=== PATIENT | male | born 1950 | race Caucasian/White ===

== ENCOUNTER 2018-01-22 12:40 | Observation (INO) | payer MEDICARE, OTHER ==
[~2018-01-22] VITALS: Ht 193 cm; Wt 87.8 kg
[~2018-01-22 12:40] MED LIST: AMOCLA500 PO; Abilify2 MG; Amoxicillin500 MG PO; BUPR150ER PO; Budeprion Xl300 MG; CEPASTAT MT; CLOM50A; CLOM50A PO; CLON.5 PO; CYCL10 PO; Coumadin5 MG PO; FEXO60; FLUT110OIA INH; Fluvoxamine Ma100 MG PO; HYDACE5 PO; IBUHYD PO; IBUP800 PO; LEVO750 PO; LORA1 PO; Lovenox100 MG/1 M SQ; MAGIC MOUTHWASH PO; MELATONIN10 M2 PO; MELO7.5 PO; METPHE10 PO; MULVITMINF; Mobic15 MG PO; Norco 10-325 T1 EACH PO; Percocet 5-3251 EACH PO; ST JOHNS WORT; VERA120 PO; VERA180ER PO; VERA180ERA; VERA240ERB; VERA80 PO
[2018-01-22 13:18] LABS: BASOPHILS ABSOLUTE AUTO 0.05 K/mm3 (0.00-0.23); BASOPHILS PERCENT AUTO 1 % (0-2); EOSINOPHILS ABSOLUTE AUTO 0.28 K/mm3 (0.00-0.68); EOSINOPHILS PERCENT AUTO 3 % (0-6); Hematocrit 44.3 % (37.0-53.0); Hemoglobin 14.9 g/dL (13.5-17.5); IMMATURE GRAN ABSOLUTE AUTO 0.04 K/mm3 (0.00-0.10); IMMATURE GRAN PERCENT AUTO 0 % (0-1); LYMPHOCYTES ABSOLUTE AUTO 1.62 K/mm3 (0.84-5.20); LYMPHOCYTES PERCENT AUTO 17 % (21-46); MONOCYTES ABSOLUTE AUTO 0.54 K/mm3 (0.16-1.47); MONOCYTES PERCENT AUTO 6 % (4-13); Mean Corpuscular HGB Conc 33.6 g/dL (31.5-36.5); Mean Corpuscular Volume 89 fL (80-100); Mean Platelet Volume 10.8 fL (9.1-12.4); NEUTROPHILS ABSOLUTE AUTO 7.26 K/mm3 (1.96-9.15); NEUTROPHILS PERCENT AUTO 74 % (41-73); Platelet Count 200 K/mm3 (150-400); RDW Coefficient Variation 13.8 % (11.7-14.2); RDW Standard Deviation 45.1 fL (35.1-46.3); Red Blood Cell Count 4.97 M/mm3 (4.30-5.90); White Blood Cell Count 9.79 K/mm3 (4.00-11.30)
[2018-01-22 13:33] LABS: Alanine Aminotransfer (ALT/SGP 20 U/L (12-78); Albumin, Blood 3.4 g/dL (3.4-5.0); Alk Phos 32 U/L (50-136); Anion Gap 6 mmol/L (6-16); Aspartate Aminotrans (AST/SGOT 22 U/L (12-37); Bilirubin, Total 0.3 mg/dL (0.1-1.0); Blood Urea Nitrogen 19 mg/dL (8-24); Bun/Creatinine Ratio 13.9 (12.0-20.0); CO2, Blood 24 mmol/L (21-32); Calcium, Blood 8.7 mg/dL (8.5-10.1); Chloride, Blood 111 mmol/L (98-108); Creatinine, Blood 1.37 mg/dL (0.60-1.20); Globulin, Blood 3.4 g/dL (2.2-4.0); Glomerular Filtration Rate 55 (60-); Glucose, Blood 83 mg/dL (70-99); Potassium, Blood 4.2 mmol/L (3.5-5.5); Sodium, Blood 141 mmol/L (136-145); Total Protein, Blood 6.8 g/dL (6.4-8.2); Troponin I <0.015 ng/mL (0.000-0.040)
[2018-01-22] MEDS ORDERED: AMPDEX10CR PO ×2 (14:58→18:17)
[2018-01-22] MEDS ORDERED: METO50ER PO (14:58)
[2018-01-22] MEDS ORDERED: Flecainide Acet50 MG PO (14:58)
[2018-01-22] MEDS ORDERED: AMPDEX15CR PO (14:59)
[2018-01-23 05:26] LABS: Mean Corpuscular HGB Conc 32.6 g/dL (31.5-36.5); Mean Corpuscular Volume 89 fL (80-100); Mean Platelet Volume 10.8 fL (9.1-12.4); Platelet Count 187 K/mm3 (150-400); RDW Coefficient Variation 13.8 % (11.7-14.2); RDW Standard Deviation 44.9 fL (35.1-46.3); Red Blood Cell Count 4.83 M/mm3 (4.30-5.90); White Blood Cell Count 7.99 K/mm3 (4.00-11.30)
[2018-01-23 05:50] LABS: Anion Gap 7 mmol/L (6-16); Blood Urea Nitrogen 19 mg/dL (8-24); CHOL/HDL RATIO 4.1; CO2, Blood 23 mmol/L (21-32); Calcium, Blood 8.1 mg/dL (8.5-10.1); Chloride, Blood 112 mmol/L (98-108); Cholesterol 156 mg/dL (50-200); Creatinine, Blood 1.19 mg/dL (0.60-1.20); Glomerular Filtration Rate >60 (60-); Glucose, Blood 74 mg/dL (70-99); HDL Cholesterol 38 mg/dL (>39); LDL/HDL RATIO 2.7; Low Density Lipoprotein Chol 104 mg/dL (0-110); Potassium, Blood 4.1 mmol/L (3.5-5.5); Sodium, Blood 142 mmol/L (136-145); Triglycerides 72 mg/dL (30-160); Very Low Density Lipoprot Chol 14 mg/dL (6-32)
== END 2018-01-23 16:21 | disposition home or self-care (01) ==
LOC: ER 12:40 → MEDS 12:41 → ER 12:41 → MEDS 12:41 → ENPENDDIS 01-23 15:43 → MEDS 01-23 16:21
PROVIDERS: Emergency Medicine; Internal Medicine
DX: R55 Syncope and collapse (principal); I10 Essential (primary) hypertension; E29.1 Testicular hypofunction; F90.9 Attention-deficit hyperactivity disorder, unspecified type; F41.9 Anxiety disorder, unspecified; Z79.899 Other long term (current) drug therapy; Z88.8 Allergy status to other drugs, medicaments and biological substances
CPT/HCPCS: 36415; 70498; 71046; 80048; 80053; 80061; 84484; 85025; 85027; 93005; 93010; 96360; 96361; 99285-25; G0378; J7030; Q9967

== ENCOUNTER 2018-07-11 11:08 | Emergency (ER) | payer MEDICARE, OTHER ==
[~2018-07-11] VITALS: Ht 193 cm; Wt 88.0 kg
[~2018-07-11 11:08] MED LIST changes: +AMPDEX10CR PO; +AMPDEX15CR PO; +Flecainide Acet50 MG PO; +METO50ER PO
[2018-07-11 12:25] LABS: Calcium, Ionized (POC) 1.17 mmol/L (1.10-1.46); Chloride (POC) 107 mmol/L (98-108); Creatinine (POC) 1.4 mg/dL (0.8-1.3); Glucose (ISTAT POC) 87 mg/dL (70-99); Hemoglobin (POC) 15.3 g/dL (13.5-17.5); Potassium (POC) 4.5 mmol/L (3.5-5.5); Sodium (POC) 143 mmol/L (135-148); Total CO2 (POC) 25 mmol/L (21-32)
[2018-07-11] MEDS ORDERED: Norco 5-325 Ta1 EACH PO (12:45)
[2018-07-11] MEDS ORDERED: ELIQUIS5 MG PO (12:45)
== END 2018-07-11 13:00 | disposition home or self-care (01) ==
LOC: ER 11:08
PROVIDERS: Physician Assistant
DX: I82.4Z2 Acute embolism and thrombosis of unspecified deep veins of left distal lower extremity (principal); I12.9 Hypertensive chronic kidney disease with stage 1 through stage 4 chronic kidney disease, or unspecified chronic kidney disease; N18.9 Chronic kidney disease, unspecified; I71.2 Thoracic aortic aneurysm, without rupture; I48.91 Unspecified atrial fibrillation; F42.9 Obsessive-compulsive disorder, unspecified; M41.9 Scoliosis, unspecified; Z79.899 Other long term (current) drug therapy; Z88.8 Allergy status to other drugs, medicaments and biological substances
CPT/HCPCS: 36415; 80047; 85014; 93971; 99284-25

== ENCOUNTER → 2018-07-17 | Outpatient (CLI) | payer MEDICARE, OTHER ==
[~2018-07-17] MED LIST changes: +ELIQUIS5 MG PO; +Norco 5-325 Ta1 EACH PO
[2018-07-17 17:03] LABS: Appearance, Urine Clear (Clear); Bilirubin, Urine Neg (Neg); Blood, Urine 1+ (Neg); Color, Urine Yellow (P-Yellow); Glucose Qualitative, Urine Neg (Neg); Ketones, Urine Neg (Neg); Leukocyte Esterase, Urine Neg (Neg); Nitrite, Urine Neg (Neg); Protein, Urine Neg (Neg); Specific Gravity, Urine 1.015 (1.003-1.022); Urobilinogen, Urine NORM (Normal)
[2018-07-17 17:20] LABS: Squamous Epithelial Cells Rare /hpf (Few); White Blood Cells, Urine Not Seen /hpf (0-5)
[2018-07-17 17:21] LABS: Bacteria Not Seen /hpf; Red Blood Cells, Urine 0-2 /hpf (0-2)
== END | disposition home or self-care (01) ==
LOC: LAB SHORT 16:25 → LAB 16:25
PROVIDERS: Family Medicine
DX: R35.0 Frequency of micturition (principal)
CPT/HCPCS: 81001

== ENCOUNTER → 2019-02-14 | Outpatient (CLI) | payer MEDICARE, OTHER ==
[~2019-02-14] MED LIST changes: +Vibramycin100 MG PO
== END | disposition home or self-care (01) ==
LOC: LAB SHORT 11:30 → LAB 11:30
DX: S81.831A Puncture wound without foreign body, right lower leg, initial encounter (principal)
CPT/HCPCS: 87070; 87075; 87205

== ENCOUNTER 2019-02-19 19:46 | Emergency (ER) | payer MEDICARE, OTHER ==
[~2019-02-19] VITALS: Ht 193 cm; Wt 93.0 kg
[~2019-02-19 19:46] MED LIST changes: -Vibramycin100 MG PO
[2019-02-19] MEDS ORDERED: Vibramycin100 MG PO (20:27)
== END 2019-02-19 20:37 | disposition home or self-care (01) ==
LOC: ER 19:46
DX: L08.9 Local infection of the skin and subcutaneous tissue, unspecified (principal); M41.9 Scoliosis, unspecified; I71.2 Thoracic aortic aneurysm, without rupture; Z88.8 Allergy status to other drugs, medicaments and biological substances
CPT/HCPCS: 99283

== ENCOUNTER 2019-04-08 14:24 | Emergency (ER) | payer MEDICARE, OTHER ==
[~2019-04-08] VITALS: Ht 193 cm; Wt 90.7 kg
[~2019-04-08 14:24] MED LIST changes: +Vibramycin100 MG PO
[2019-04-08 15:39] LABS: BASOPHILS ABSOLUTE AUTO 0.07 K/mm3 (0.00-0.23); BASOPHILS PERCENT AUTO 1 % (0-2); EOSINOPHILS ABSOLUTE AUTO 0.58 K/mm3 (0.00-0.68); EOSINOPHILS PERCENT AUTO 5 % (0-6); Hemoglobin 14.7 g/dL (13.5-17.5); IMMATURE GRAN ABSOLUTE AUTO 0.05 K/mm3 (0.00-0.10); IMMATURE GRAN PERCENT AUTO 1 % (0-1); LYMPHOCYTES ABSOLUTE AUTO 2.35 K/mm3 (0.84-5.20); LYMPHOCYTES PERCENT AUTO 21 % (21-46); MONOCYTES ABSOLUTE AUTO 0.76 K/mm3 (0.16-1.47); MONOCYTES PERCENT AUTO 7 % (4-13); Mean Corpuscular HGB 29.6 pg (26.0-34.0); Mean Corpuscular HGB Conc 32.7 g/dL (31.5-36.5); Mean Corpuscular Volume 91 fL (80-100); Mean Platelet Volume 11.1 fL (9.1-12.4); NEUTROPHILS ABSOLUTE AUTO 7.22 K/mm3 (1.96-9.15); NEUTROPHILS PERCENT AUTO 65 % (41-73); Platelet Count 219 K/mm3 (150-400); RDW Coefficient Variation 14.8 % (11.7-14.2); RDW Standard Deviation 48.9 fL (35.1-46.3); Red Blood Cell Count 4.96 M/mm3 (4.30-5.90); White Blood Cell Count 11.03 K/mm3 (4.00-11.30)
[2019-04-08 16:14] LABS: Alanine Aminotransfer (ALT/SGP 19 U/L (12-78); Albumin, Blood 3.8 g/dL (3.4-5.0); Albumin/Globulin Ratio 1.1 (0.8-1.8); Alk Phos 35 U/L (50-136); Anion Gap 5 mmol/L (6-16); Aspartate Aminotrans (AST/SGOT 25 U/L (12-37); Bilirubin, Total 0.5 mg/dL (0.1-1.0); Blood Urea Nitrogen 31 mg/dL (8-24); Bun/Creatinine Ratio 22.6 (12.0-20.0); CO2, Blood 25 mmol/L (21-32); Calcium, Blood 9.5 mg/dL (8.5-10.1); Chloride, Blood 109 mmol/L (98-108); Creatinine, Blood 1.37 mg/dL (0.60-1.20); Globulin, Blood 3.5 g/dL (2.2-4.0); Glomerular Filtration Rate 55 (60-); Glucose, Blood 85 mg/dL (70-99); Potassium, Blood 4.1 mmol/L (3.5-5.5); Sodium, Blood 139 mmol/L (136-145); Total Protein, Blood 7.3 g/dL (6.4-8.2); Troponin I <0.015 ng/mL (0.000-0.040)
== END 2019-04-08 16:49 | disposition home or self-care (01) ==
LOC: ER 14:24
PROVIDERS: Physician Assistant
DX: I48.91 Unspecified atrial fibrillation (principal); N28.9 Disorder of kidney and ureter, unspecified; Z88.8 Allergy status to other drugs, medicaments and biological substances; Z79.899 Other long term (current) drug therapy; I10 Essential (primary) hypertension
CPT/HCPCS: 36415; 71046; 80053; 83735; 84484; 85025; 93005; 93010; 99284-25

== ENCOUNTER 2019-06-19 07:50 | Day surgery (SDC) | payer MEDICARE, OTHER ==
--- NOTE | 2019-06-19 08:40 | NUR ---
PATIENT TOOK HIS METOPROLOL IN PREPARATION FOR HIS EXAM TODAY. NOTHING TO EAT OR DRIN FOR 6 HOURS.
--- NOTE | 2019-06-19 09:25 | NUR ---
PATIENT DISCHARGED IN STABLE CONDITION.
== END 2019-06-19 23:20 | disposition home or self-care (01) ==
LOC: ORD 07:50 → CT 07:50 → ORD 08:30 → CT 09:00 → ORD 23:20
DX: I48.0 Paroxysmal atrial fibrillation (principal); R94.39 Abnormal result of other cardiovascular function study; I71.2 Thoracic aortic aneurysm, without rupture; I10 Essential (primary) hypertension; Z79.899 Other long term (current) drug therapy; Z79.01 Long term (current) use of anticoagulants; Z88.8 Allergy status to other drugs, medicaments and biological substances
CPT/HCPCS: 75574; Q9967

== ENCOUNTER 2019-11-19 22:44 | Emergency (ER) | payer MEDICARE, OTHER ==
[~2019-11-19] VITALS: Ht 193 cm; Wt 102.1 kg
[2019-11-20] MEDS ORDERED: ERYT1OIN LEFTEYE (01:25)
== END 2019-11-20 01:43 | disposition home or self-care (01) ==
LOC: ER 22:44
DX: T15.02XA Foreign body in cornea, left eye, initial encounter (principal); I10 Essential (primary) hypertension; Z88.8 Allergy status to other drugs, medicaments and biological substances; Z79.899 Other long term (current) drug therapy; W45.8XXA Other foreign body or object entering through skin, initial encounter
CPT/HCPCS: 65222; 99282-25

== ENCOUNTER 2019-12-28 07:09 | Day surgery (SDC) | payer MEDICARE, OTHER ==
[~2019-12-28] VITALS: Ht 193 cm; Wt 102.0 kg
[~2019-12-28 07:09] MED LIST changes: +ERYT1OIN LEFTEYE; +FINA5 PO; +MIRT15 PO; +TAMS.4ER PO; +XARELTO20 MG PO
--- NOTE | 2019-12-28 11:00 | NUR ---
PT IV DC'D INTACT, DRESSED, AMB TO BTR OK, DC'D BY THIS RN BY WC WITH DRIVING PT HOME
== END 2019-12-28 22:44 | disposition home or self-care (01) ==
LOC: MHTC 07:09
DX: I34.0 Nonrheumatic mitral (valve) insufficiency (principal); I45.10 Unspecified right bundle-branch block
CPT/HCPCS: 93005; 93010; 93312; 93325; J2250; J3010; J7040

== ENCOUNTER 2020-03-14 13:22 | Emergency (ER) | payer MEDICARE, OTHER ==
[~2020-03-14] VITALS: Ht 193 cm; Wt 102.1 kg
== END 2020-03-14 17:04 | disposition home or self-care (01) ==
LOC: ER 13:22
DX: S46.911A Strain of unspecified muscle, fascia and tendon at shoulder and upper arm level, right arm, initial encounter (principal); M54.12 Radiculopathy, cervical region; I10 Essential (primary) hypertension; F42.9 Obsessive-compulsive disorder, unspecified; Z88.8 Allergy status to other drugs, medicaments and biological substances; Z79.899 Other long term (current) drug therapy; V94.89XA Other water transport accident, initial encounter
CPT/HCPCS: 72040; 73030; 99283-25

== ENCOUNTER 2022-06-21 11:26 | Emergency (ER) | payer MEDICARE, OTHER ==
[~2022-06-21] VITALS: Ht 193 cm; Wt 90.7 kg
[~2022-06-21 11:26] MED LIST changes: -ALBU90OI INH; -BETA.05TCA; -Diflucan150 MG PO; -ELIQUIS5 M2 PO; -Flonase 0.05% N16 GM; -MUPIROCIN15 GM; -TESTOSTERONE200 MG IL; -ZENZEDI2.5 MG
[2022-06-21 12:13] LABS: BASOPHILS ABSOLUTE AUTO 0.05 K/mm3 (0.00-0.23); BASOPHILS PERCENT AUTO 1 % (0-2); EOSINOPHILS ABSOLUTE AUTO 0.42 K/mm3 (0.00-0.68); EOSINOPHILS PERCENT AUTO 5 % (0-6); Hematocrit 48.4 % (37.0-53.0); Hemoglobin 16.4 g/dL (13.5-17.5); IMMATURE GRAN ABSOLUTE AUTO 0.03 K/mm3 (0.00-0.10); IMMATURE GRAN PERCENT AUTO 0 % (0-1); LYMPHOCYTES ABSOLUTE AUTO 2.04 K/mm3 (0.84-5.20); LYMPHOCYTES PERCENT AUTO 24 % (21-46); MONOCYTES ABSOLUTE AUTO 0.34 K/mm3 (0.16-1.47); MONOCYTES PERCENT AUTO 4 % (4-13); Mean Corpuscular HGB Conc 33.9 g/dL (31.5-36.5); Mean Corpuscular Volume 89 fL (80-100); Mean Platelet Volume 10.5 fL (9.1-12.4); NEUTROPHILS ABSOLUTE AUTO 5.48 K/mm3 (1.96-9.15); NEUTROPHILS PERCENT AUTO 66 % (41-73); Platelet Count 213 K/mm3 (150-400); RDW Coefficient Variation 14.5 % (11.7-14.2); RDW Standard Deviation 46.8 fL (35.1-46.3); Red Blood Cell Count 5.47 M/mm3 (4.30-5.90); White Blood Cell Count 8.36 K/mm3 (4.00-11.30)
[2022-06-21 12:34] LABS: Albumin, Blood 3.3 g/dL (3.4-5.0); Albumin/Globulin Ratio 1.1 (0.8-1.8); Bilirubin, Total 0.5 mg/dL (0.1-1.0); Bun/Creatinine Ratio 17.6 (12.0-20.0); Calcium, Blood 8.4 mg/dL (8.5-10.1); Creatinine, Blood 1.19 mg/dL (0.60-1.20); Globulin, Blood 2.9 g/dL (2.2-4.0); Potassium, Blood 3.9 mmol/L (3.5-5.5); Total Protein, Blood 6.2 g/dL (6.4-8.2)
[2022-06-21] MEDS ORDERED: MUPIROCIN15 GM (12:50)
[2022-06-21] MEDS ORDERED: TESTOSTERONE200 MG IL (12:50)
[2022-06-21] MEDS ORDERED: BETA.05TCA (12:51)
[2022-06-21] MEDS ORDERED: ELIQUIS5 M2 PO (12:51)
[2022-06-21] MEDS ORDERED: Diflucan150 MG PO (12:51)
[2022-06-21] MEDS ORDERED: ALBU90OI INH (12:51)
[2022-06-21] MEDS ORDERED: ZENZEDI2.5 MG (12:52)
[2022-06-21] MEDS ORDERED: Flonase 0.05% N16 GM (12:52)
== END 2022-06-21 14:15 | disposition home or self-care (01) ==
LOC: ER 11:26
PROVIDERS: Emergency Medicine
DX: R55 Syncope and collapse (principal); Z88.8 Allergy status to other drugs, medicaments and biological substances; Z79.899 Other long term (current) drug therapy; I48.91 Unspecified atrial fibrillation; I10 Essential (primary) hypertension
CPT/HCPCS: 80053; 82947; 85025; 93005; 93010

== ENCOUNTER → 2022-06-21 | Outpatient (CLI) | payer MEDICARE, OTHER ==
[~2022-06-21] MED LIST changes: +ALBU90OI INH; +BETA.05TCA; +Diflucan150 MG PO; +ELIQUIS5 M2 PO; +Flonase 0.05% N16 GM; +MUPIROCIN15 GM; +TESTOSTERONE200 MG IL; +ZENZEDI2.5 MG
[2022-06-21 12:47] LABS: BASOPHILS ABSOLUTE AUTO 0.05 K/mm3 (0.00-0.23); BASOPHILS PERCENT AUTO 1 % (0-2); EOSINOPHILS ABSOLUTE AUTO 0.54 K/mm3 (0.00-0.68); EOSINOPHILS PERCENT AUTO 7 % (0-6); Hematocrit 49.7 % (37.0-53.0); IMMATURE GRAN ABSOLUTE AUTO 0.02 K/mm3 (0.00-0.10); IMMATURE GRAN PERCENT AUTO 0 % (0-1); LYMPHOCYTES ABSOLUTE AUTO 2.02 K/mm3 (0.84-5.20); LYMPHOCYTES PERCENT AUTO 27 % (21-46); MONOCYTES ABSOLUTE AUTO 0.43 K/mm3 (0.16-1.47); MONOCYTES PERCENT AUTO 6 % (4-13); Mean Corpuscular HGB Conc 34.2 g/dL (31.5-36.5); Mean Corpuscular Volume 88 fL (80-100); Mean Platelet Volume 10.9 fL (9.1-12.4); NEUTROPHILS ABSOLUTE AUTO 4.31 K/mm3 (1.96-9.15); NEUTROPHILS PERCENT AUTO 59 % (41-73); Platelet Count 241 K/mm3 (150-400); RDW Coefficient Variation 14.5 % (11.7-14.2); RDW Standard Deviation 46.7 fL (35.1-46.3); Red Blood Cell Count 5.67 M/mm3 (4.30-5.90); White Blood Cell Count 7.37 K/mm3 (4.00-11.30)
[2022-06-21 13:17] LABS: Creatine Kinase MB Index 1.5 (0.0-4.0)
== END | disposition home or self-care (01) ==
LOC: LAB 10:45 → LAB SHORT 10:45
PROVIDERS: Nurse Practitioner Family
DX: J06.9 Acute upper respiratory infection, unspecified (principal); D50.8 Other iron deficiency anemias; I10 Essential (primary) hypertension; R09.81 Nasal congestion
CPT/HCPCS: 82550; 82553; 84484; 85025

== ENCOUNTER → 2024-02-01 | Outpatient (CLI) | payer MEDICARE, OTHER ==
[~2024-02-01] MED LIST changes: +ALBU90OI INH; +BETA.05TCA; +Diflucan150 MG PO; +ELIQUIS5 M2 PO; +Flonase 0.05% N16 GM; +MUPIROCIN15 GM; +TESTOSTERONE200 MG IL; +ZENZEDI2.5 MG
[2024-02-01 18:06] LABS: Hematocrit 48.1 % (37.0-53.0); Hemoglobin 16.2 g/dL (13.5-17.5); Mean Corpuscular HGB 28.9 pg (26.0-34.0); Mean Corpuscular HGB Conc 33.7 g/dL (31.5-36.5); Mean Corpuscular Volume 86 fL (80-100); Mean Platelet Volume 10.4 fL (9.1-12.4); Platelet Count 335 K/mm3 (150-400); RDW Coefficient Variation 13.5 % (11.7-14.2); RDW Standard Deviation 42.4 fL (35.1-46.3); White Blood Cell Count 11.04 K/mm3 (4.00-11.30)
[2024-02-01 18:24] LABS: Albumin, Blood 3.3 g/dL (3.4-5.0); Albumin/Globulin Ratio 0.8 (0.8-1.8); Bilirubin, Direct 0.1 mg/dL (0.0-0.3); Bilirubin, Indirect 0.4 mg/dL (0.1-0.7); Bilirubin, Total 0.5 mg/dL (0.1-1.0); Bun/Creatinine Ratio 25.3 (12.0-20.0); Calcium, Blood 9.1 mg/dL (8.5-10.1); Creatinine, Blood 0.99 mg/dL (0.60-1.20); Globulin, Blood 4.2 g/dL (2.2-4.0); Total Protein, Blood 7.5 g/dL (6.4-8.2)
[2024-02-01 18:26] LABS: BASOPHILS PERCENT MAN 0 % (0-2); EOSINOPHILS ABSOLUTE MAN 0.22 K/mm3 (0.00-0.68); EOSINOPHILS PERCENT MAN 2 % (0-6); LYMPHOCYTES ABSOLUTE MAN 1.87 K/mm3 (0.84-5.20); LYMPHOCYTES PERCENT MAN 17 % (21-46); MONOCYTES ABSOLUTE MAN 0.88 K/mm3 (0.16-1.47); MONOCYTES PERCENT MAN 8 % (4-13); NEUTROPHILS ABSOLUTE MAN 8.05 K/mm3 (1.96-9.15); SEG NEUTROPHILS PERCENT MAN 73 % (41-73); TOTAL CELLS COUNTED 100
[2024-02-04 05:37] LABS: ANTINUCLEAR AB (ANA),HEP-2,IGG <1:80 (<1:80)
== END ==
LOC: LAB SHORT 14:58 → LAB 14:58
PROVIDERS: Nurse Practitioner
DX: G89.29 Other chronic pain (principal); M25.50 Pain in unspecified joint
CPT/HCPCS: 80053; 82248; 85007; 85027; 85651; 86039; 86430